=== PATIENT | female | born 1970 | race Hispanic/Latino ===

== ENCOUNTER 2019-11-14 11:15 | Emergency (ER) | payer SELFPAY ==
[~2019-11-14] VITALS: Ht 157.5 cm; Wt 104.3 kg
[2019-11-14] MEDS ORDERED: ONDANSETRON HCL INJ 2MG/ML 2ML 2 MG/ML VIAL IV STA (11:48)
[2019-11-14] MEDS ORDERED: MORPHINE SULFATE 2 MG/ML SYR 1ML IV PRN (12:00)
[2019-11-14 12:32] LABS: BASOPHILS % 0.2 % (0.0-1.0); EOSINOPHILS # (AUTO) 0.5 (0.0-0.4); HEMATOCRIT 43.2 % (34.2-44.1); HEMOGLOBIN 13.4 g/dL (12.0-16.0); LYMPHOCYTES # (AUTO) 1.7 (1.0-3.2); LYMPHOCYTES % 17.3 % (18.0-39.1); MEAN CORPUSCULAR HEMOGLOBIN 25.8 pg (28-32); MEAN CORPUSCULAR VOLUME 83.1 fL (81-99); MONOCYTES # (AUTO) 0.3 (0.2-0.8); MONOCYTES % 3.3 % (4.4-11.3); NEUTROPHILS # (AUTO) 7.1 (2.1-6.9); NEUTROPHILS % 73.8 % (38.7-80.0); PLATELET COUNT 375 x10e3/uL (140-360); RED CELL DISTRIBUTION WIDTH 14.8 % (11.7-14.4)
--- NOTE | 2019-11-14 12:35 | NUR ---
{null, 1235: Pt given 6mg morphine, pt noted to have episode of bradycardia in 50's and low SBP in 80's. O2@2l/nc applied. Pt [id number] in trendelenburg. 1241: Dr. Dutta notified, 1 liter NS bolus given. SBP increased to 117/71 HR:59 Sats:96%. }
[2019-11-14] MEDS ORDERED: SODIUM CHLORIDE 0.9% 1000ML 1,000 ML IV STA (12:36)
--- NOTE | 2019-11-14 12:36 | Emergency Department Note ---
History of Present Illnes History of Present Illness Chief Complaint: Abdominal Complaints History of Present Illness This is a 49 year old female arrived to the ED with epigastric and right upper quadrant abdominal pain for 1 day. Daughter at bedside states mother complained of pain yesterday but it is worse today. Patient states pain associated with nausea, no vomiting, denies any fever or chills. Chief Complaint Comment c/o non radiating epigastric pain x 2 hr after eating papaya states she is not allergic to papaya states she still has appendix/gallbl adder c/o n/v and constipation denies dysuria md in room during triage Historian: Patient, Family Member Arrival Mode: Car Operations Support Representative Required: No (spoke to patient in [place]) Onset (how long ago): day(s) Radiation: Reports back Severity: moderate Onset quality: sudden Duration (how long): day(s) Timing of current episode: constant Progression: worsening Chronicity: new Past Medical/Family History Physician Review I have reviewed the patient's past medical and family history. Any updates have been documented here. Past Medical History Recent Fever: No Clinical Suspicion of Infectio: No New/Unexplained Change in Ment: No Past Surgical History: Social History Smoking Cessation: Unknown if ever smoked Alcohol Use: Social Any Illegal Drug Use: No TB Exposure/Symptoms: No Physically hurt or threatened: No Other Last Tetanus: utd Any Pre-Existing Lines (PICC,: No Is patient up to date on immun: Yes Last Flu: na Last Pneumovax: na Review of Systems Review of Systems Constitutional: Reports no symptoms EENTM: Reports no symptoms Cardiovascular: Reports no symptoms Respiratory: Reports no symptoms Gastrointestinal: Reports as per HPI, Reports abdominal pain, Reports nausea Genitourinary: Reports no symptoms Musculoskeletal: Reports no symptoms Integumentary: Reports no symptoms Neurological: Reports no symptoms Psychological: Reports no symptoms Endocrine: Reports no symptoms Hematological/Lymphatic: Reports no symptoms Physical Exam Related Data Allergies: Coded Allergies: No Known Allergies (Unverified , 11/14/19) Triage Vital Signs Vital Signs Date Time Temp Pulse Resp B/P (MAP) Pulse Ox O2 Delivery O2 Flow Rate FiO2 11/14/19 11:19 97.8 76 18 127/74 96 Vital signs reviewed: Yes Physical Exam CONSTITUTIONAL Constitutional: Present well-developed, Present well-nourished HENT HENT: Present normocephalic, Present atraumatic, Present oropharynx clear/moist, Present nose normal HENT L/R: Present left ext ear normal, Present right ext ear normal EYES Eyes: Reports PERRL, Reports conjunctivae normal NECK Neck: Present ROM normal PULMONARY Pulmonary: Present effort normal, Present breath sounds normal CARDIOVASCULAR Cardiovascular: Present regular rhythm, Present heart sounds normal, Present capillary refill normal, Present normal rate GASTROINTESTINAL Abdominal: Present soft, Present bowel sounds normal, Present tender GENITOURINARY Genitourinary: Present exam deferred SKIN Skin: Present warm, Present dry MUSCULOSKELETAL Musculoskeletal: Present ROM normal NEUROLOGICAL Neurological: Present alert, Present oriented x 3, Present no gross motor or sensory deficits PSYCHOLOGICAL Psychological: Present mood/affect normal, Present judgement normal Results Laboratory Laboratory Laboratory Tests Test 11/14/19 11:58 Laboratory Tests Test 11/14/19 11:58 White Blood Count 9.60 x10e3/uL (4.8-10.8) Red Blood Count 5.20 x10e6/uL (3.6-5.1) Hemoglobin 13.4 g/dL (12.0-16.0) Hematocrit 43.2 % (34.2-44.1) Mean Corpuscular Volume 83.1 fL (81-99) Mean Corpuscular Hemoglobin 25.8 pg (28-32) Mean Corpuscular Hemoglobin Concent 31.0 g/dL (31-35) Red Cell Distribution Width 14.8 % (11.7-14.4) Platelet Count 375 x10e3/uL (140-360) Neutrophils (%) (Auto) 73.8 % (38.7-80.0) Lymphocytes (%) (Auto) 17.3 % (18.0-39.1) Monocytes (%) (Auto) 3.3 % (4.4-11.3) Eosinophils (%) (Auto) 5.0 % (0.0-6.0) Basophils (%) (Auto) 0.2 % (0.0-1.0) Neutrophils # (Auto) 7.1 (2.1-6.9) Lymphocytes # (Auto) 1.7 (1.0-3.2) Monocytes # (Auto) 0.3 (0.2-0.8) Eosinophils # (Auto) 0.5 (0.0-0.4) Basophils # (Auto) 0.0 (0.0-0.1) Absolute Immature Granulocyte (auto 0.04 x10e3/uL (0-0.1) Urine Color Yellow (YELLOW) Urine Clarity Turbid (CLEAR) Urine pH 5.5 (5 - 7) Urine Specific [place] 1.030 (1.010-1.025) Urine Protein 2+ (NEGATIVE) Urine Glucose (UA) Negative (NEGATIVE) Urine Ketones Trace (NEGATIVE) Urine Blood Negative (NEGATIVE) Urine Nitrite Negative (NEGATIVE) Urine Bilirubin Small (NEGATIVE) Urine Urobilinogen 0.2 mg/dL (0.2 - 1) Urine Leukocyte Esterase Negative (NEGATIVE) Urine RBC 0-5 /HPF (0-5) Urine WBC 0-5 /HPF (0-5) Urine Epithelial Cells Few /LPF (NONE) Urine Amorphous Sediment Many (FEW) Urine Bacteria None /HPF (NONE) Urine Mucus Few (RARE) Urine Test Negative (NEGATIVE) Sodium Level 139 mmol/L (136-145) Potassium Level 3.5 mmol/L (3.5-5.1) Chloride Level 103 mmol/L (98-107) Carbon Dioxide Level 26 mmol/L (22-29) Anion Gap 13.5 mmol/L (8-16) Blood Urea Nitrogen 12 mg/dL (7-26) Creatinine 0.70 mg/dL (0.57-1.11) Estimat Glomerular Filtration Rate > 60 ML/MIN (60-) BUN/Creatinine Ratio 17 (6-25) Glucose Level 123 mg/dL (74-118) Calcium Level 9.2 mg/dL (8.4-10.2) Total Bilirubin 0.5 mg/dL (0.2-1.2) Aspartate Amino Transf (AST/SGOT) 20 IU/L (5-34) Alanine Aminotransferase (ALT/SGPT) 22 IU/L (0-55) Alkaline Phosphatase 118 IU/L (40-150) Creatine Kinase 53 IU/L (29-168) Creatine Kinase MB 1.00 ng/mL (0-5.0) Troponin I 0.001 ng/mL (0-0.300) Total Protein 7.6 g/dL (6.5-8.1) Albumin 3.4 g/dL (3.5-5.0) Globulin 4.2 g/dL (2.3-3.5) Albumin/Globulin Ratio 0.8 (0.8-2.0) Lipase 11 U/L (8-78) Lab results reviewed: Yes Imaging Imaging results reviewed: Yes Impressions IMPRESSION: No acute abdominopelvic process identified to correlate with patient's abdominal pain. Hepatomegaly and CT findings suggestive of hepatic steatosis. Diverticulosis coli without evidence for acute diverticulitis. Procedures 12 Lead ECG Interpretation ECG Interpretation : ECG: ECG 1 Operations Support Representative: Interpreted by ED physician Prior ECG tracings: reviewed Rhythm: sinus rhythm Rate: normal QRS axis: normal ST segments normal: Yes T waves normal: Yes Clinical Impression: normal ECG Assessment & Plan Medical Decision Making MDM 49-year-old female arrived to the ED with right upper quadrant abdominal pain and epigastric pain leading to her back. Patient seen and EKG and cardiac markers to rule out atypical presentation of ACS. EKG, cardiac markers normal. Patient's labwork showed no elevated WBC count. Patient CT abdomen and pelvis was normal with no concerns of any acute intra- abdominal surgical or infectious process. Patient informed of findings of fatty liver. Patient informed there is a likelihood she may still have gallstones/cholelithiasis and I encouraged outpatient general surgery follow-up. Patient and daughter express understanding. Proceeding with that in a way that was easily compensable to the patient and patient's telida language. Assessment & Plan Final Impression: (1) GENERALIZED ABDOMINAL PAIN Last Vital Signs Date Time Temp Pulse Resp B/P (MAP) Pulse Ox O2 Delivery O2 Flow Rate FiO2 11/14/19 11:19 97.8 76 18 127/74 96 Home Meds Active Scripts Ondansetron Hcl* (ZOFRAN*) 4 Mg Tablet, 4 MG SL Q6H PRN for NAUSEA, #14 MG 0 Refills Prov:SANTOS COELLO DO 11/14/19 Medications in the ED Morphine Sulfate 6 mg ONCE PRN IV SEVERE PAIN (7-10); Start 11/14/19 at 12:00; Stop 11/21/19 at 11:59 Ondansetron HCl 4 mg NOW STAT IV ; Start 11/14/19 at 11:48; Stop 11/14/19 at 11:54; Status DC SANTOS COELLO DO Nov 14, 2019 12:36
[2019-11-14 12:39] LABS: BILIRUBIN,URINE SMALL (NEGATIVE); CLARITY,URINE TURBID (CLEAR); COLOR,URINE YELLOW (YELLOW); KETONES,URINE TRACE (NEGATIVE); LEUKOCYTE ESTERASE ,URINE NEGATIVE (NEGATIVE); NITRITE,URINE NEGATIVE (NEGATIVE); PREGNANCY TEST, URINE NEGATIVE (NEGATIVE); PROTEIN,URINE DIPSTICK 2+ (NEGATIVE); URINE UROBILINOGEN 0.2 mg/dL (0.2 - 1)
[2019-11-14] MEDS ORDERED: SODIUM CHLORIDE 0.9% 1000ML 1,000 ML ONE (12:43)
[2019-11-14 12:44] LABS: AMORPHOUS SEDIMENT,URINE MANY (FEW); EPITHELIAL CELLS,URINE FEW /LPF; MUCUS,URINE FEW (RARE); RBC,URINE 0-5 /HPF (0-5); WBC,URINE (MAN) 0-5 /HPF (0-5)
[2019-11-14 12:49] LABS: ALANINE AMINOTRANSFERASE 22 IU/L (0-55); ALBUMIN 3.4 g/dL (3.5-5.0); ALBUMIN/GLOBULIN RATIO 0.8 (0.8-2.0); ALKALINE PHOSPHATASE 118 IU/L (40-150); ANION GAP 13.5 mmol/L (8-16); BLOOD UREA NITROGEN 12 mg/dL (7-26); BUN/CREATININE RATIO 17 (6-25); CALCIUM 9.2 mg/dL (8.4-10.2); CARBON DIOXIDE 26 mmol/L (22-29); CHLORIDE 103 mmol/L (98-107); EST GLOMERULAR FILTRATION RATE > 60 ML/MIN (60-); GLUCOSE 123 mg/dL (74-118); POTASSIUM 3.5 mmol/L (3.5-5.1); SODIUM 139 mmol/L (136-145)
[2019-11-14] MEDS ORDERED: SODIUM CHLORIDE 0.9% 50ML 50 ML ONE (13:06)
[2019-11-14] MEDS ORDERED: IOPAMIDOL 370 MG/ML 200 ML INFUS..BTL INJ ONE (13:06)
--- NOTE | 2019-11-14 14:41 | NUR ---
{null, Pt recieved CT scan. }
--- NOTE | 2019-11-14 14:45 | Diagnostic Imaging Report ---
CT of the abdomen and pelvis, with contrast. History: Abdominal pain. Comparison: None available. Technique: Multidetector CT scanning of the abdomen and pelvis was performed from the level of the lung bases to the inferior pubic rami after intravenous administration of contrast. Coronal and sagittal multiplanar reformations were obtained. RADIATION DOSE: Total DLP: 769.98 mGy*cm Dose modulation, iterative reconstruction, and/or weight based adjustment of the mA/kV was utilized to reduce the radiation dose to as low as reasonably achievable. FINDINGS: There is minimal bibasilar atelectasis present. The visualized lungs are otherwise unremarkable. The imaged portion of the heart demonstrates no significant abnormalities. The liver is enlarged measuring 21 cm in length and appears diffusely decreased in attenuation compatible with fatty infiltration. No focal hepatic abnormality is identified. The gallbladder is unremarkable. There is no biliary ductal dilatation. The stomach, spleen, pancreas, and bilateral adrenal glands are unremarkable. The kidneys are normal in size and location and enhance symmetrically. There is no evidence for hydronephrosis. No ureteral stone or dilatation is appreciated. The partially distended urinary bladder demonstrates no significant abnormalities. The uterus and adnexa are grossly unremarkable. The abdominal aorta is normal in course and caliber. The IVC is unremarkable. Please note evaluation of the bowel is limited without the use of enteric contrast material. The visualized loops small and large bowel demonstrate no evidence of obstruction or inflammation. The appendix is visualized and appears unremarkable. Diverticula are noted within the sigmoid and descending colon without significant adjacent inflammatory change to suggest acute diverticulitis. There is no ascites or intraperitoneal free air. No abnormally enlarged lymph nodes are identified within the abdomen or pelvis. The osseous structures demonstrate no evidence for acute fracture or destructive process. The extraperitoneal soft tissues are unremarkable. IMPRESSION: No acute abdominopelvic process identified to correlate with patient's abdominal pain. Hepatomegaly and CT findings suggestive of hepatic steatosis. Diverticulosis coli without evidence for acute diverticulitis. Signed by: Dr. Sergio Melgoza MD on 11/14/2019 2:41 PM
[2019-11-14] MEDS ORDERED: ZOFRAN4 MG SL (15:00)
[2019-11-14 15:08] VITALS: BP 96/51
== END 2019-11-14 15:23 | disposition home or self-care (01) ==
LOC: ER 11:15
DX: R10.11 Right upper quadrant pain (principal); R10.84 Generalized abdominal pain; R11.0 Nausea
CPT/HCPCS: 36415; 74177; 80053; 81001; 81025; 82550; 82553; 83690; 84484; 85025; 93005; 99284; J2270; J2405; J7030; Q9967

== ENCOUNTER 2022-04-06 19:20 | Emergency (ER) | payer SELFPAY ==
[~2022-04-06] VITALS: Ht 157.5 cm; Wt 104.3 kg
[~2022-04-06 19:20] MED LIST: ZOFRAN4 MG SL
[2022-04-06] MEDS ORDERED: ONDANSETRON HCL INJ 2MG/ML 2ML 2 MG/ML VIAL IV STA (20:00)
[2022-04-06] MEDS ORDERED: ACETAMINOPHEN 325 MG TAB PO ONE (20:00)
[2022-04-06 20:10] LABS: BASOPHILS % 0.3 % (0.0-1.0); EOSINOPHILS # (AUTO) 0.1 (0.0-0.4); EOSINOPHILS % 1.2 % (0.0-6.0); HEMATOCRIT 44.1 % (34.2-44.1); HEMOGLOBIN 13.5 g/dL (12.0-16.0); LYMPHOCYTES # (AUTO) 1.6 (1.0-3.2); LYMPHOCYTES % 14.2 % (18.0-39.1); MEAN CORPUSCULAR HEMOGLOBIN 26.7 pg (28-32); MEAN CORPUSCULAR HGB CONC 30.6 g/dL (31-35); MEAN CORPUSCULAR VOLUME 87.3 fL (81-99); MONOCYTES # (AUTO) 0.4 (0.2-0.8); MONOCYTES % 3.7 % (4.4-11.3); NEUTROPHILS # (AUTO) 9.2 (2.1-6.9); NEUTROPHILS % 80.3 % (38.7-80.0); PLATELET COUNT 391 x10e3/uL (140-360); RED BLOOD COUNT 5.05 x10e6/uL (3.6-5.1)
[2022-04-06 20:27] LABS: ALBUMIN 3.5 g/dL (3.5-5.0); ALBUMIN/GLOBULIN RATIO 0.8 (0.8-2.0); ANION GAP 13.8 mmol/L (8-16); CALCIUM 9.1 mg/dL (8.4-10.2); CREATININE, SERUM 0.71 mg/dL (0.57-1.11); POTASSIUM 3.8 mmol/L (3.5-5.1)
[2022-04-06 22:39] LABS: CLARITY,URINE CLEAR (CLEAR); COLOR,URINE YELLOW (YELLOW); KETONES,URINE 1+ (NEGATIVE); LEUKOCYTE ESTERASE ,URINE NEGATIVE (NEGATIVE); NITRITE,URINE NEGATIVE (NEGATIVE); PROTEIN,URINE DIPSTICK NEGATIVE (NEGATIVE); URINE UROBILINOGEN 0.2 mg/dL (0.2 - 1)
[2022-04-06 23:05] LABS: BACTERIA,URINE FEW /HPF; EPITHELIAL CELLS,URINE MANY /LPF; MUCUS,URINE MODERATE (RARE); RBC,URINE 0-5 /HPF (0-5)
[2022-04-06] MEDS ORDERED: CEFDINIR300 MG PO (23:31)
[2022-04-06] MEDS ORDERED: ONDANSETRON ODT4 MG PO (23:31)
== END 2022-04-06 22:44 | disposition home or self-care (01) ==
LOC: ER 19:24
DX: R51.9 Headache, unspecified (principal); N39.0 Urinary tract infection, site not specified; I10 Essential (primary) hypertension
CPT/HCPCS: 36415; 70450; 80053; 81001; 82550; 82553; 83690; 84484; 85025; 93005; 99284; C9113; J2405